=== PATIENT | female | born 1945 | race Caucasian/White ===

== ENCOUNTER 2017-07-09 12:36 | Emergency (ER) | payer MEDICARE, OTHER ==
--- NOTE | 2017-07-09 13:22 | RAD ---
PA AND LATERAL CHEST: Indication: Cough. Comparison: 06-11-15 FINDINGS: Lungs are clear. Cardiomediastinal silhouette is within normal limits. No acute osseous abnormality i s evident. IMPRESSION: No acute cardiopulmonary abnormality. POS: [id number]
[2017-07-09] MEDS ORDERED: Oseltamivir 75 MG CAP ONE (13:37)
[2017-07-09] MEDS ORDERED: Benzonatate 100 MG CAP ONE (13:37)
== END 2017-07-09 13:50 | disposition home or self-care (01) ==
LOC: MADERS 12:36
DX: J11.1 Influenza due to unidentified influenza virus with other respiratory manifestations (principal); E78.5 Hyperlipidemia, unspecified; I10 Essential (primary) hypertension; Z79.899 Other long term (current) drug therapy
CPT/HCPCS: 71020; 87081; 87430

== ENCOUNTER 2020-09-28 20:31 | Emergency (ER) | payer MEDICARE | END 2020-09-28 23:06 | disposition home or self-care (01) | LOC: MADERS 20:31 | DX: S06.0X9A Concussion with loss of consciousness of unspecified duration, initial encounter (principal); S00.03XA Contusion of scalp, initial encounter; E78.5 Hyperlipidemia, unspecified; I10 Essential (primary) hypertension; E78.00 Pure hypercholesterolemia, unspecified; W01.10XA Fall on same level from slipping, tripping and stumbling with subsequent striking against unspecified object, initial encounter | CPT/HCPCS: 70450; 72125 ==